=== PATIENT | male | born 1985 | race Caucasian/White ===

== ENCOUNTER 2018-05-27 11:07 | Observation (INO) | payer BC, OTHER ==
--- NOTE | 2018-05-27 11:22 | ERPHSYRPT ---
- History of Present Illness Time Seen by Provider: 05/27/18 11:21 Historian: patient, family Exam Limitations: no limitations Physician History: 33 y/o white male presents with generalzixe abdominal pain rated as a 9/10. pain began last pm and has worsened despite use of oral pepto bismal. pt had a similar episode a few years ago but after trauma. no n/v/d. no trauma. pt has not had any abd surgeries in the past Timing/Duration: day(s) (1), worse Quality: sharpness, stabbing Abdominal Pain Onset Location: generalized abdomen Pain Radiation: no radiation Severity of Pain-Max: moderate Severity of Pain-Current: moderate Modifying Factors: Improves With: antacids (no change) Associated Symptoms: No back, No chest pain, No diaphoresis, No diarrhea, No fatigue, No heartburn, No loss of appetite, No nausea, No neck pain, No shortness of breath, No syncope, No vomiting, No weakness Previous symptoms: same symptoms as today Allergies/Adverse Reactions: No Known Drug Allergies Allergy (Verified 05/27/18 11:37) Home Medications: No Reportable Medications [No Reported Medications] 05/27/18 [History] - Review of Systems Constitutional: No Symptoms, No Fever Eyes: No Symptoms, No Eye Pain Ears, Nose, & Throat: No Symptoms, No Ear Pain, No Mouth Pain, No Hoarse, No Painful Swallowing Respiratory: No Symptoms, No Cough, No Dyspnea, No Stridor, No Wheezing Cardiac: No Symptoms, No Chest Pain, No Palpitations, No Syncope Abdominal/Gastrointestinal: Abdominal Pain, No Nausea, No Vomiting, No Diarrhea , No Constipation Genitourinary Symptoms: No Symptoms, No Dysuria, No Frequency, No Hematuria Musculoskeletal: No Symptoms, No Back Pain, No Neck Pain, No Fall, No Injury Skin: No Symptoms Neurological: No Symptoms Psychological: No Symptoms Endocrine: No Symptoms Hematologic/Lymphatic: No Symptoms Immunological/Allergic: No Symptoms All Other Systems: Reviewed and Negative - Past Medical History Pertinent Past Medical History: Yes Neurological History: No Pertinent History ENT History: No Pertinent History Cardiac History: No Pertinent History Respiratory History: No Pertinent History Endocrine Medical History: No Pertinent History Musculoskeletal History: No Pertinent History GI Medical History: No Pertinent History History: No Pertinent History Psycho-Social History: No Pertinent History Male Reproductive Disorders: No Pertinent History - Past Surgical History Neuro Surgical History: No Pertinent History Cardiac: No Pertinent History Respiratory: No Pertinent History Gastrointestinal: No Pertinent History Genitourinary: No Pertinent History - Nursing Vital Signs Nursing Vital Signs: Initial Vital Signs Temperature 97.6 F 05/27/18 11:26 Pulse Rate 85 05/27/18 11:26 Blood Pressure 152/88 05/27/18 11:26 O2 Sat by Pulse Oximetry 100 05/27/18 11:26 Pain Scale Pain Intensity 5 - Physical Exam General Appearance: no apparent distress, mild distress, alert Eye Exam: PERRL/EOMI, eyes nml inspection Ears, Nose, Throat Exam: normal ENT inspection, moist mucous membranes Neck Exam: normal inspection, non-tender, supple, full range of motion Respiratory Exam: normal breath sounds, lungs clear, airway intact, No chest tenderness, No respiratory distress, No accessory muscle use, No rhonchi, No wheezing, No stridor Cardiovascular Exam: regular rate/rhythm, normal heart sounds, normal peripheral pulses Gastrointestinal/Abdomen Exam: soft, normal bowel sounds, tenderness (diffuse mild), guarding, No rebound Rectal Exam: not done Back Exam: normal inspection, normal range of motion, No vertebral tenderness Extremity Exam: normal inspection, normal range of motion, pelvis stable Neurologic Exam: alert, oriented x 3, cooperative, physician assistant primary care II-XII nml as tested Skin Exam: normal color, warm, dry Lymphatic Exam: No adenopathy SpO2 Interpretation: normal Oxygen Delivery: Room Air - Course Nursing assessment & vital signs reviewed: Yes Ordered Tests: Active Orders 24 hr Category Date Time Status Clean Catch Urine Specimen STAT Care 05/27/18 11:48 Active IV Insertion STAT Care 05/27/18 11:39 Active ABDOMEN AND PELVIS W CONTRAST [CT] Stat Exams 05/27/18 11:40 Taken AMYLASE Stat Lab 05/27/18 11:45 Completed CBC W DIFF Stat Lab 05/27/18 11:45 Completed CMP Stat Lab 05/27/18 11:45 Completed LIPASE Stat Lab 05/27/18 11:45 Completed Lactic Acid Stat Lab 05/27/18 11:39 Completed UA W/RFX UR CULTURE Stat Lab 05/27/18 11:20 Completed Transfer Order Routine Transfer 05/27/18 Ordered Medication Summary Discontinued Medications Generic Name Dose Route Start Last Admin Trade Name Freq PRN Reason Stop Dose Admin Hydromorphone HCl 1 mg 05/27/18 11:39 05/27/18 11:55 Hydromorphone 1 Mg/Ml Ampule IV 05/27/18 11:40 1 mg STAT ONE Administration Hydromorphone HCl Confirm 05/27/18 11:50 Hydromorphone 1 Mg/Ml Ampule Administered 05/27/18 11:51 Dose 1 mg .ROUTE .STK-MED ONE Sodium Chloride 1,000 mls @ 999 mls/hr 05/27/18 11:39 05/27/18 13:04 Sodium Chloride 0.9% 1000 Ml IV 05/27/18 12:39 Infused .Q1H1M STA Infusion Sodium Chloride Confirm 05/27/18 11:50 Sodium Chloride 0.9% 1000 Ml Administered 05/27/18 11:51 Dose 1,000 mls @ ud .ROUTE .STK-MED ONE Ondansetron HCl 4 mg 05/27/18 11:39 05/27/18 11:55 Zofran 4 Mg/2 Ml Vial IV 05/27/18 11:40 4 mg STAT ONE Administration Ondansetron HCl Confirm 05/27/18 11:50 Zofran 4 Mg/2 Ml Vial Administered 05/27/18 11:51 Dose 4 mg .ROUTE .STK-MED ONE Lab/Rad Data: Laboratory Result Diagrams 05/27/18 11:45 05/27/18 11:45 Laboratory Results 05/27/18 05/27/18 05/27/18 Range/Units 11:45 11:45 11:39 WBC 14.7 H (4.0-10.5) K/mm3 RBC 5.63 H (4.1-5.6) M/mm3 Hgb 16.3 (12.5-18.0) gm/dl Hct 48.2 (42-50) % MCV 85.6 (78-100) fl MCH 28.9 (26-32) pg MCHC 33.8 (32-36) g/dl RDW 13.6 (11.5-14.0) % Plt Count 227 (150-450) K/mm3 MPV 10.4 H (6-9.5) fl Gran % 86.9 H (36.0-66.0) % Eos # (Auto) 0.05 (0-0.5) Absolute Lymphs (auto) 0.95 L (1.0-4.6) Absolute Monos (auto) 0.91 (0.0-1.3) Lymphocytes % 6.5 L (24.0-44.0) % Monocytes % 6.2 (0.0-12.0) % Eosinophils % 0.3 (0.00-5.0) % Basophils % 0.1 (0.0-0.4) % Absolute Granulocytes 12.77 H (1.4-6.9) Basophils # 0.01 (0-0.4) Sodium 139 (137-145) mmol/L Potassium 4.7 (3.5-5.1) mmol/L Chloride 101 (98-107) mmol/L Carbon Dioxide 28 (22-30) mmol/L Anion Gap 15.1 H (5-15) MEQ/L BUN 17 (9-20) mg/dL Creatinine 0.91 (0.66-1.25) mg/dL Estimated GFR > 60.0 ML/MIN Glucose 110 H (74-106) mg/dL Lactic Acid 1.0 (0.4-2.0) Calcium 9.8 (8.4-10.2) mg/dL Total Bilirubin 0.50 (0.2-1.3) mg/dL AST 34 (17-59) U/L ALT 25 (0-50) U/L Alkaline Phosphatase 82 (38-126) U/L Serum Total Protein 8.3 H (6.3-8.2) g/dL Albumin 5.2 H (3.5-5.0) g/dL Amylase 78 (30-110) U/L Lipase 61 (23-300) U/L Urine Color (YELLOW) Urine Appearance (CLEAR) Urine pH (5-6) Ur Specific [place] (1.005-1.025) Urine Protein (Negative) Urine Ketones (NEGATIVE) Urine Blood (0-5) [place]/ul Urine Nitrite (NEGATIVE) Urine Bilirubin (NEGATIVE) Urine Urobilinogen (0-1) mg/dL Ur Leukocyte Esterase (NEGATIVE) Urine WBC (Auto) (0-5) /HPF Urine Mucus (Auto) (NEGATIVE) /HPF Urine Culture Reflexed (NO) Urine Glucose (NEGATIVE) mg/dL 05/27/18 Range/Units 11:20 WBC (4.0-10.5) K/mm3 RBC (4.1-5.6) M/mm3 Hgb (12.5-18.0) gm/dl Hct (42-50) % MCV (78-100) fl MCH (26-32) pg MCHC (32-36) g/dl RDW (11.5-14.0) % Plt Count (150-450) K/mm3 MPV (6-9.5) fl Gran % (36.0-66.0) % Eos # (Auto) (0-0.5) Absolute Lymphs (auto) (1.0-4.6) Absolute Monos (auto) (0.0-1.3) Lymphocytes % (24.0-44.0) % Monocytes % (0.0-12.0) % Eosinophils % (0.00-5.0) % Basophils % (0.0-0.4) % Absolute Granulocytes (1.4-6.9) Basophils # (0-0.4) Sodium (137-145) mmol/L Potassium (3.5-5.1) mmol/L Chloride (98-107) mmol/L Carbon Dioxide (22-30) mmol/L Anion Gap (5-15) MEQ/L BUN (9-20) mg/dL Creatinine (0.66-1.25) mg/dL Estimated GFR ML/MIN Glucose (74-106) mg/dL Lactic Acid (0.4-2.0) Calcium (8.4-10.2) mg/dL Total Bilirubin (0.2-1.3) mg/dL AST (17-59) U/L ALT (0-50) U/L Alkaline Phosphatase (38-126) U/L Serum Total Protein (6.3-8.2) g/dL Albumin (3.5-5.0) g/dL Amylase (30-110) U/L Lipase (23-300) U/L Urine Color YELLOW (YELLOW) Urine Appearance CLEAR (CLEAR) Urine pH 5.0 (5-6) Ur Specific [place] 1.012 (1.005-1.025) Urine Protein NEGATIVE (Negative) Urine Ketones TRACE (NEGATIVE) Urine Blood SMALL (0-5) [place]/ul Urine Nitrite NEGATIVE (NEGATIVE) Urine Bilirubin NEGATIVE (NEGATIVE) Urine Urobilinogen NEGATIVE (0-1) mg/dL Ur Leukocyte Esterase NEGATIVE (NEGATIVE) Urine WBC (Auto) 0-2 (0-5) /HPF Urine Mucus (Auto) SLIGHT (NEGATIVE) /HPF Urine Culture Reflexed NO (NO) Urine Glucose NEGATIVE (NEGATIVE) mg/dL ct scan abd/pelvis dilated stomach with large amt fluid; ileus without definite bowel obstruction - Progress Progress: improved, pain not gone completely, re-examined Progress Note: 05/27/18 13:32 spoke with pt and sig other. dr. washington at bedside as well. reviewed pts lab and ct scan results with pt and dr. washington. we agree pt to be admitted for observation and place ngt. Discussed with : Pete Will see patient in: hospital (observation) Counseled pt/family regarding: lab results, diagnosis, rad results - Departure Time of Disposition: 13:33 Departure Disposition: Observation Clinical Impression: Ileus, Gastric dilation Condition: Stable Critical Care Time: No Referrals: [facility] [Primary Care Provider] -
[2018-05-27] MEDS ORDERED: Sodium Chloride 0.9% 1000 ML 1,000 ML IV STA ×2 (11:39→14:05)
[2018-05-27] MEDS ORDERED: Zofran 4 MG/2 ML VIAL IV ONE (11:39)
[2018-05-27] MEDS ORDERED: Hydromorphone 1 mg/ml Ampule IV ONE (11:39)
[2018-05-27] MEDS ORDERED: Sodium Chloride 0.9% 1000 ML 1,000 ML ONE ×2 (11:50→14:05)
[2018-05-27] MEDS ORDERED: Zofran 4 MG/2 ML VIAL ONE (11:50)
[2018-05-27] MEDS ORDERED: Hydromorphone 1 mg/ml Ampule ONE (11:50)
[2018-05-27 12:12] LABS: BASOPHIL % 0.1 % (0.0-0.4); Basophil (Absolute #) 0.01 (0-0.4); Eosinophil % 0.3 % (0.00-5.0); Eosinophil (Absolute #) 0.05 (0-0.5); Granulocyte Absolute (ANC) 12.77 (1.4-6.9); Granulocytes % 86.9 % (36.0-66.0); Hematocrit 48.2 % (42-50); Hemoglobin 16.3 gm/dl (12.5-18.0); Lymphocyte (Absolute #) 0.95 (1.0-4.6); Lymphocytes % 6.5 % (24.0-44.0); Mean Cell Volume 85.6 fl (78-100); Mean Corpuscular Hgb Concent. 33.8 g/dl (32-36); Mean Platelet Volume 10.4 fl (6-9.5); Monocyte (Absolute #) 0.91 (0.0-1.3); Monocytes % 6.2 % (0.0-12.0); Platelet Count 227 K/mm3 (150-450); Red Blood Count 5.63 M/mm3 (4.1-5.6); Red Cell Distribution Width 13.6 % (11.5-14.0); White Blood Count 14.7 K/mm3 (4.0-10.5)
[2018-05-27 12:16] LABS: Mean Corpuscular Hemoglobin 28.9 pg (26-32)
[2018-05-27 12:19] LABS: Appearance CLEAR (CLEAR); Bilirubin NEGATIVE (NEGATIVE); Blood SMALL Ery/ul (0-5); Glucose NEGATIVE (NEGATIVE); Ketones TRACE (NEGATIVE); Leukocyte Esterase NEGATIVE (NEGATIVE); Nitrite NEGATIVE (NEGATIVE); Protein,Urine Dip NEGATIVE (Negative); Specific Gravity 1.012 (1.005-1.025); Urobilinogen NEGATIVE mg/dL (0-1)
[2018-05-27 12:27] LABS: ALBUMIN 5.2 g/dL (3.5-5.0); ALKALINE PHOSPHATASE 82 U/L (38-126); AMYLASE 78 U/L (30-110); ANION GAP 15.1 MEQ/L (5-15); BLOOD UREA NITROGEN 17 mg/dL (9-20); CHLORIDE 101 mmol/L (98-107); Calcium 9.8 mg/dL (8.4-10.2); Carbon Dioxide 28 mmol/L (22-30); Creatinine 1 0.91 mg/dL (0.66-1.25); Glucose 110 mg/dL (74-106); LIPASE 61 U/L (23-300); Potassium 4.7 mmol/L (3.5-5.1); SGOT/AST 34 U/L (17-59); SGPT/ALT 25 U/L (0-50); SODIUM 139 mmol/L (137-145); Total Protein 8.3 g/dL (6.3-8.2)
--- NOTE | 2018-05-27 13:51 | XRAY ---
Exam: CT of the abdomen and pelvis with IV contrast from 05/27/2018. CTDI: 19.15 Comparison: None. Indication: 33-year-old male with abdominal pain since last night, pain is within mid abdomen and moves from side to side, pain is worse with standing. Technique: Post-IV contrast axial images were obtained through the abdomen and pelvis during automated injection of 80 cc of Isovue-370 contrast material. Reconstructed coronal and sagittal images were created and reviewed. Delayed axial images were also obtained through the abdomen and pelvis. Findings: The visualized lung bases appear clear. There is a small granulomatous calcification adjacent to the anterior margin of the distal thoracic esophagus. There is a large amount of fluid within the stomach lumen. There is also a small amount of contrast layering within the posterior aspect of the body of the stomach. The proximal small bowel is of normal diameter and contains some oral contrast within it. However, just above the level of the umbilicus and extending inferiorly into the pelvis, there are multiple fluid-filled, dilated small bowel loops measuring up to a maximum of 3.6 cm in diameter and demonstrating some air-fluid levels. No bowel wall thickening is seen. Some gas and stool are seen distally throughout the colon. I believe I can detect the appendix within the right lower quadrant, and it appears unremarkable. The 2 major differential possibilities include significant gastroenteritis versus a partial distal small bowel obstruction. Follow-up will be needed. No free intraperitoneal air is seen. The liver and spleen appear unremarkable. The gallbladder is of normal size and reveals no dense calcifications within it. No intrahepatic or extrahepatic biliary duct distention is seen. The pancreas appears unremarkable. No inflammatory changes of the pancreas are seen. The adrenal glands appear normal. The kidneys function bilaterally and are remarkable for a couple tiny cysts within the lower pole of the right kidney. No hydronephrosis or solid renal mass is seen. No obvious renal calculi are noted. The abdominal aorta appears of normal diameter. There is no abdominal aortic aneurysm or abnormal retroperitoneal lymphadenopathy. The anterior abdominal wall is intact. A mild amount of scattered stool is seen throughout the colon. Minimal sigmoid colon diverticulosis appears to be present. I see no findings to suggest acute diverticulitis. There is minimal fluid within the lower posterior pelvis. This is abnormal in a male. No enlarged pelvic lymph nodes are seen. The urinary bladder is partially distended and appears unremarkable. The seminal vesicles and prostate gland appear normal. The inguinal regions reveal some small reactive lymph nodes. The bones reveal no acute fracture or aggressive bone lesion. There appears to be a small bone island within the anterior aspect of the left femoral head. Impression: 1. Abnormal bowel gas pattern with large amount of fluid within the stomach lumen. Also, the mid and distal small bowel is largely fluid filled and reveals dilation up to 3.6 cm in diameter. The proximal small bowel appears unremarkable. Gas and stool are seen distally within the colon. The findings are either due to a significant gastroenteritis or a partial distal small bowel obstruction. In addition, I believe there is a minimal amount of free intraperitoneal fluid within the lower posterior pelvis in this male patient. This is also abnormal. Follow-up is recommended. I called this report to the emergency Department physician at approximately 1:25 PM on 05/27/2018. 2. No free intraperitoneal air is seen. The appendix is normal. There is minimal sigmoid colon diverticulosis without evidence of diverticulitis. No other acute process is seen within the abdomen or pelvis.
[2018-05-27] MEDS ORDERED: Phenergan 25 MG INJ IV ONE (14:05)
[2018-05-27] MEDS ORDERED: Phenergan 25 MG INJ ONE (14:14)
[2018-05-27] MEDS ORDERED: FEVERALL 650 MG PR PRN (14:32)
[2018-05-27] MEDS ORDERED: Zofran 4 MG/2 ML VIAL IV PRN (14:32)
[2018-05-27] MEDS ORDERED: DILAUDID 2 MG INJECTION IV PRN (14:32)
[2018-05-27] MEDS ORDERED: TORAdol 30 mg Injection IV PRN (15:46)
[2018-05-27] MEDS ORDERED: PROTONIX 40 MG IV IV ONE (15:47)
[2018-05-27] MEDS ORDERED: CHLORASEPTIC SPRAY 180 ML PO PRN (15:48)
[2018-05-27] MEDS: D5W/0.45NS W/ 20mEq KCl 1000 ML 1,000 ML IV SCH (16:20)
[2018-05-27] MEDS: Pepcid 20 MG VIAL IV SCH (16:21)
[2018-05-27] MEDS ORDERED: Ativan 2 MG/1 ML VIAL IV PRN (18:34)
[2018-05-28] MEDS: D5W/0.45NS W/ 20mEq KCl 1000 ML 1,000 ML IV SCH ×2 (00:27→09:48)
[2018-05-28 06:10] LABS: Basophil (Absolute #) 0 (0-0.4); Eosinophil % 0.8 % (0.00-5.0); Eosinophil (Absolute #) 0.09 (0-0.5); Granulocyte Absolute (ANC) 8.57 (1.4-6.9); Granulocytes % 78.3 % (36.0-66.0); Hemoglobin 15.3 gm/dl (12.5-18.0); Lymphocyte (Absolute #) 1.41 (1.0-4.6); Lymphocytes % 12.9 % (24.0-44.0); Mean Corpuscular Hemoglobin 28.7 pg (26-32); Mean Corpuscular Hgb Concent. 32.6 g/dl (32-36); Mean Platelet Volume 10.5 fl (6-9.5); Monocyte (Absolute #) 0.88 (0.0-1.3); Platelet Count 202 K/mm3 (150-450); Red Blood Count 5.34 M/mm3 (4.1-5.6); Red Cell Distribution Width 13.9 % (11.5-14.0)
[2018-05-28 06:39] LABS: ALBUMIN 4.3 g/dL (3.5-5.0); ALKALINE PHOSPHATASE 58 U/L (38-126); ANION GAP 9.7 MEQ/L (5-15); BLOOD UREA NITROGEN 11 mg/dL (9-20); CHLORIDE 103 mmol/L (98-107); Calcium 8.8 mg/dL (8.4-10.2); Carbon Dioxide 32 mmol/L (22-30); Creatinine 1 0.88 mg/dL (0.66-1.25); Glucose 109 mg/dL (74-106); Potassium 4.2 mmol/L (3.5-5.1); SGOT/AST 29 U/L (17-59); SGPT/ALT 19 U/L (0-50); SODIUM 140 mmol/L (137-145); Total Protein 6.9 g/dL (6.3-8.2)
--- NOTE | 2018-05-28 07:07 | PCM.HP ---
History of Present Illness - Chief Complaint Chief Complaint: abdominal pain Date: 05/28/18 History of Present Illness: is a 33 year old male. previously healthy who presented with 1 day of sever and worsening abdominal pain and abdominal distension while at work. He had diffuse abdominal pain and tried pepto bismal with no relief. It progressively worsened and he presented to the ED with 9/10 pain. He had a small bowel movement the morning of presentation. He has no vomiting or fever. No previous abdominal surgeries. He has no known food ingestions and no travel. He takes no other medications or substances - Review of Systems Constitutional: No Fever, No Chills Eyes: No Symptoms Ears, Nose, & Throat: No Symptoms Respiratory: No Cough, No Short Of Breath Cardiac: No Chest Pain, No Edema, No Syncope Abdominal/Gastrointestinal: Abdominal Pain, Nausea, No Vomiting, No Diarrhea Genitourinary Symptoms: No Dysuria Musculoskeletal: No Back Pain, No Neck Pain Skin: No Rash Neurological: No Dizziness, No Focal Weakness, No Sensory Changes Psychological: No Symptoms Endocrine: No Symptoms Hematologic/Lymphatic: No Symptoms Immunological/Allergic: No Symptoms Medications & Allergies Home Medications: Home Medication List No Reportable Medications [No Reported Medications] 05/27/18 [History Confirmed 05/27/18] Allergies/Adverse Reactions: Allergies Allergy/AdvReac Type Severity Reaction Status Date / Time No Known Drug Allergies Allergy Verified 05/27/18 11:37 - Past Medical History Past Medical History: Yes Neurological History: No Pertinent History ENT History: No Pertinent History Cardiac History: No Pertinent History Respiratory History: No Pertinent History Endocrine Medical History: No Pertinent History Musculoskelatal History: No Pertinent History GI Medical History: No Pertinent History History: No Pertinent History Pyscho-Social History: No Pertinent History Male Reproductive Disorders: No Pertinent History - Past Surgical History Neuro Surgical History: No Pertinent History Cardiac History: No Pertinent History Respiratory Surgery: No Pertinent History GI Surgical History: No Pertinent History Genitourinary Surgical Hx: No Pertinent History Musculskeletal Surgical Hx: No Pertinent History Male Surgical History: No Pertinent History Other Surgical History: tubes in ears - Social History Smoking Status: Never smoker Exposure to second hand smoke: No Alcohol: Rarely Drug Use: none - Physical Exam Vital Signs: Vital Signs - 24 hr Temp Pulse Resp BP Pulse Ox 05/28/18 04:00 98.3 F 80 16 128/74 98 05/27/18 23:33 98.9 F 75 18 116/68 95 05/27/18 18:47 98.8 F 66 16 124/70 99 05/27/18 16:00 97.6 F 70 12 133/71 99 05/27/18 14:49 97.6 F 70 12 133/71 99 05/27/18 14:45 97.9 F 77 18 153/75 99 05/27/18 14:23 97.6 F 70 133/71 99 05/27/18 12:47 97.6 F 70 122/75 100 05/27/18 12:00 97.6 F 87 152/88 100 05/27/18 11:26 97.6 F 85 152/88 100 General Appearance: no apparent distress, alert Neurologic Exam: alert, oriented x 3, cooperative, normal mood/affect, nml cerebellar function, nml station & gait, sensation nml, No motor deficits Eye Exam: PERRL/EOMI, eyes nml inspection Ears, Nose, Throat Exam: normal ENT inspection, TMs normal, pharynx normal, moist mucous membranes Neck Exam: normal inspection, non-tender, supple, full range of motion Respiratory Exam: normal breath sounds, lungs clear, No respiratory distress Cardiovascular Exam: regular rate/rhythm, normal heart sounds, normal peripheral pulses Gastrointestinal/Abdomen Exam: soft, tenderness, distention, No normal bowel sounds (hypoactive), No mass, No guarding, No rebound, No hernia Back Exam: normal inspection, normal range of motion, No CVA tenderness, No vertebral tenderness Extremity Exam: normal inspection, normal range of motion, pelvis stable Skin Exam: normal color, warm, dry, No rash Lymphatic Exam: No adenopathy Results - Labs Lab/Micro Results: Lab Results-Last 24 Hours 05/27/18 05/27/18 05/27/18 Range/Units 11:20 11:39 11:45 WBC 14.7 H (4.0-10.5) K/mm3 RBC 5.63 H (4.1-5.6) M/mm3 Hgb 16.3 (12.5-18.0) gm/dl Hct 48.2 (42-50) % MCV 85.6 (78-100) fl MCH 28.9 (26-32) pg MCHC 33.8 (32-36) g/dl RDW 13.6 (11.5-14.0) % Plt Count 227 (150-450) K/mm3 MPV 10.4 H (6-9.5) fl Gran % 86.9 H (36.0-66.0) % Eos # (Auto) 0.05 (0-0.5) Absolute Lymphs (auto) 0.95 L (1.0-4.6) Absolute Monos (auto) 0.91 (0.0-1.3) Lymphocytes % 6.5 L (24.0-44.0) % Monocytes % 6.2 (0.0-12.0) % Eosinophils % 0.3 (0.00-5.0) % Basophils % 0.1 (0.0-0.4) % Absolute Granulocytes 12.77 H (1.4-6.9) Basophils # 0.01 (0-0.4) Sodium (137-145) mmol/L Potassium (3.5-5.1) mmol/L Chloride (98-107) mmol/L Carbon Dioxide (22-30) mmol/L Anion Gap (5-15) MEQ/L BUN (9-20) mg/dL Creatinine (0.66-1.25) mg/dL Estimated GFR ML/MIN Glucose (74-106) mg/dL Lactic Acid 1.0 (0.4-2.0) Calcium (8.4-10.2) mg/dL Total Bilirubin (0.2-1.3) mg/dL AST (17-59) U/L ALT (0-50) U/L Alkaline Phosphatase (38-126) U/L Serum Total Protein (6.3-8.2) g/dL Albumin (3.5-5.0) g/dL Amylase (30-110) U/L Lipase (23-300) U/L Urine Color YELLOW (YELLOW) Urine Appearance CLEAR (CLEAR) Urine pH 5.0 (5-6) Ur Specific [place] 1.012 (1.005-1.025) Urine Protein NEGATIVE (Negative) Urine Ketones TRACE (NEGATIVE) Urine Blood SMALL (0-5) [place]/ul Urine Nitrite NEGATIVE (NEGATIVE) Urine Bilirubin NEGATIVE (NEGATIVE) Urine Urobilinogen NEGATIVE (0-1) mg/dL Ur Leukocyte Esterase NEGATIVE (NEGATIVE) Urine WBC (Auto) 0-2 (0-5) /HPF Urine Mucus (Auto) SLIGHT (NEGATIVE) /HPF Urine Culture Reflexed NO (NO) Urine Glucose NEGATIVE (NEGATIVE) mg/dL 05/27/18 05/28/18 05/28/18 Range/Units 11:45 05:40 05:40 WBC 11.0 H (4.0-10.5) K/mm3 RBC 5.34 (4.1-5.6) M/mm3 Hgb 15.3 (12.5-18.0) gm/dl Hct 47.0 (42-50) % MCV 88.0 (78-100) fl MCH 28.7 (26-32) pg MCHC 32.6 (32-36) g/dl RDW 13.9 (11.5-14.0) % Plt Count 202 (150-450) K/mm3 MPV 10.5 H (6-9.5) fl Gran % 78.3 H (36.0-66.0) % Eos # (Auto) 0.09 (0-0.5) Absolute Lymphs (auto) 1.41 (1.0-4.6) Absolute Monos (auto) 0.88 (0.0-1.3) Lymphocytes % 12.9 L (24.0-44.0) % Monocytes % 8.0 (0.0-12.0) % Eosinophils % 0.8 (0.00-5.0) % Basophils % 0.0 (0.0-0.4) % Absolute Granulocytes 8.57 H (1.4-6.9) Basophils # 0 (0-0.4) Sodium 139 140 (137-145) mmol/L Potassium 4.7 4.2 (3.5-5.1) mmol/L Chloride 101 103 (98-107) mmol/L Carbon Dioxide 28 32 H (22-30) mmol/L Anion Gap 15.1 H 9.7 (5-15) MEQ/L BUN 17 11 (9-20) mg/dL Creatinine 0.91 0.88 (0.66-1.25) mg/dL Estimated GFR > 60.0 > 60.0 ML/MIN Glucose 110 H 109 H (74-106) mg/dL Lactic Acid (0.4-2.0) Calcium 9.8 8.8 (8.4-10.2) mg/dL Total Bilirubin 0.50 0.70 (0.2-1.3) mg/dL AST 34 29 (17-59) U/L ALT 25 19 (0-50) U/L Alkaline Phosphatase 82 58 (38-126) U/L Serum Total Protein 8.3 H 6.9 (6.3-8.2) g/dL Albumin 5.2 H 4.3 (3.5-5.0) g/dL Amylase 78 (30-110) U/L Lipase 61 (23-300) U/L Urine Color (YELLOW) Urine Appearance (CLEAR) Urine pH (5-6) Ur Specific [place] (1.005-1.025) Urine Protein (Negative) Urine Ketones (NEGATIVE) Urine Blood (0-5) [place]/ul Urine Nitrite (NEGATIVE) Urine Bilirubin (NEGATIVE) Urine Urobilinogen (0-1) mg/dL Ur Leukocyte Esterase (NEGATIVE) Urine WBC (Auto) (0-5) /HPF Urine Mucus (Auto) (NEGATIVE) /HPF Urine Culture Reflexed (NO) Urine Glucose (NEGATIVE) mg/dL - Radiology Impressions Radiology Exams & Impressions: Radiology Procedures Category Date Time Status ABDOMEN 2 VIEW Routine Exams 05/28/18 05:00 Taken ABDOMEN AND PELVIS W CONTRAST [CT] Stat Exams 05/27/18 11:40 Completed Assessment/Plan (1) Partial small bowel obstruction Current Visit: Yes Status: Acute Assessment & Plan: etiology unclear at this time. He has had an NG in with 800 mL out since insertion over the last 16 hours. His pain was relieved with the ng insertion although is now having pain in the nose from the ng. He has not required any analgesics since his initial dose at time of presentation. He has no nausea or pain unless palpating the abdomen. He has not had a bm or passed flatulance today. He did have bowel sounds this am although hypoactive will trial clamping ng tube and check residual amount and monitor for symptoms consult surgery for worsening symptoms or failure to improve. discussed if lack of improvement or recurrence would recommend further evalution of small bowel such as ct enterography Code(s): K56.600 - PARTIAL INTESTINAL OBSTRUCTION, UNSPECIFIED TO CAUSE
--- NOTE | 2018-05-28 08:45 | XRAY ---
Indication: Partial bowel obstruction. Comparison: CT abdomen/pelvis 1 day earlier. 2 views of the abdomen demonstrates new NG tube tip in the left upper quadrant presumed stomach. Mild distended small bowel loops with some fluid leveling appears improved again with distal colonic bowel gas. No focal bowel dilatation or free air. Solid organs unremarkable. Osseous structures intact again with mild levoscoliosis pain lung bases clear. Impression: New NG tube in situ. Previous distended small bowel loops with fluid leveling improved as detailed.
[2018-05-28] MEDS: Pepcid 20 MG VIAL IV SCH (09:31)
[2018-05-28 11:40] VITALS: BP 125/73; PULSE 79; O2SAT 98
--- NOTE | 2018-05-28 12:34 | PCM.DCORD ---
- Discharge Discharge Date: 05/28/18 Disposition: Home, Self-Care Condition: Stable Prescriptions: No Action No Reportable Medications [No Reported Medications]
== END 2018-05-28 13:04 | disposition home or self-care (01) ==
LOC: ED 11:07 → MED SURG 14:31
PROVIDERS: ADMIT Family Medicine; ATTEND Family Medicine
DX: K56.609 Unspecified intestinal obstruction, unspecified as to partial versus complete obstruction (principal)
CPT/HCPCS: 36415; 74021; 74177; 80053; 81001; 82150; 83605; 83690; 85025; 96360; 96361; 96374; 96375; 99285; G0378; J1170; J1885; J2060; J2405; J2550; Q9967; A9270-GY